=== PATIENT | female | born 1955 | race Caucasian/White ===

== ENCOUNTER → 2019-06-19 | Outpatient (CLI) | payer OTHER ==
[~2019-06-19] MED LIST: CHONDROITIN SU250 MG; GLUCOSAMINE1000 MG; GLUMETZA1000; HYDROCHLOROTHIA25 M2; LISINOPRIL10 MG; MACROBID 100 M100 M1 PO; PYRIDIUM200 MG PO; SIMVASTATIN40 MG PO
== END ==
LOC: M.CT 09:15
DX: Z13.6 Encounter for screening for cardiovascular disorders (principal)